=== PATIENT | male | born 1975 | race Caucasian/White ===

== ENCOUNTER 2023-01-01 01:00 | Day surgery (SDC) | payer OTHER, SELFPAY ==
[2022-12-20 12:55] VITALS: BMI 32.1
[2023-01-01 09:37] VITALS: BP 116/66; PULSE 72; RESP 18; TEMP 36; O2SAT 100
[2023-01-01] MEDS: LACTATED RINGERS 1,000 ML 150 ML IV CONT (09:40)
--- NOTE | 2023-01-01 10:28 | P.PNAN_ITS ---
Anes - Initial Pre Proc Eval Procedure: Operation Date: 01/01/23 11:00 Proposed Procedures p Screening Colonoscopy - Charlie Bonds MD Date/Time: 01/01/23 10:28 Surgeon: Charlie Bonds MD Pre Op Diagnosis: neoplasm screening Patient Data Age: 47 Gender: M Height: 1.7 m Weight: 93.9 kg Last Vital Signs Temp 96.8 F L 01/01/23 09:37 Pulse 72 01/01/23 09:37 Resp 18 01/01/23 09:37 BP 116/66 01/01/23 09:37 Pulse Ox 100 01/01/23 09:37 O2 Del Method Room Air 01/01/23 09:37 Allergies Allergy/AdvReac Type Severity Reaction Status Date / Time No Known Allergies Allergy Verified 01/01/23 09:36 Home Medications Medication Instructions Recorded Confirmed Type atorvastatin 20 mg tablet 20 mg PO QHS #90 tabs 12/05/22 01/01/23 Rx Patient hx anesthesia problems: none Family hx anesthesia problems: none Results Review: All pre-operative results and documents have been reviewed as part of the pre- operative evaluation. [facility] Family History Family History Father Diabetes mellitus Family history of malignant neoplasm of esophagus, Onset Age: 64 Mother Patient's mother is in good health Social History Social History Smoking packs per day: 0.5 Smoking cigarettes per day: 10.0 Years smoked: 5 Smoking pack-years: 2.50 Smoking status: Former smoker Tobacco type: cigarettes Alcohol intake: current Drinks per week: 5 Substance use type: does not use Living arrangements: with family Spiritual care concerns: No Anes - Eval Final PreProcedure Day of Procedure 01/01/23 10:28 Patient weight: obese Heart: regular rate and rhythm Lungs: clear to auscultation Airway: Mallampati scale class II Neurological: alert and oriented Last oral intake: >/= 8 hours ASA classification: II Emergent: no Anesthetic plan: proceed Anesthesia type and monitoring: general GIVS and standard monitoring Results Review: All pre-operative results and documents have been reviewed as part of the pre- operative evaluation. Informed Consent: The patient's anesthetic plan and its attendant risks and benefits were discussed with the patient/family/POA. Questions were solicited and answers provided to the satisfaction of the patient/family/POA.
--- NOTE | 2023-01-01 10:48 | P.HP_ITS ---
History of Present Illness History of Present Illness Consent: Risks, benefits, and alternatives have been discussed and questions answered. Patient agrees to proceed with procedure. Chief complaint: neoplasm screening Narrative: Joaquin Frank is a 47 year old male here for first screening colonoscopy Review of Systems Constitutional: Constitutional: Denies headache(s) and Denies weakness Eyes: Eyes: Denies blurry vision ENT: Reports Normal hearing present, Denies headache(s) and Denies neck pain Cardiovascular: Cardiovascular: Denies chest pain and Denies dyspnea Respiratory: Respiratory: Denies dyspnea Gastrointestinal: Gastrointestinal: Reports no additional gastrointestinal complaints Genitourinary: Genitourinary: Denies dysuria Musculoskeletal: Musculoskeletal: Denies neck pain Integumentary/Breasts: Skin/Breast: Denies dry skin Neurologic: Reports Normal hearing present, Denies headache(s) and Denies we akness Psychiatric: Psychiatric: Denies anxiety Endocrine: Endocrine: Denies change in body appearance Hematologic/Lymphatic: Hematologic/Lymphatic: Denies easy bleeding Allergic/Immunologic: Allergic/Immunologic: Denies urticaria PMFSH Family History Family History Father Diabetes mellitus Family history of malignant neoplasm of esophagus, Onset Age: 64 Mother Patient's mother is in good health Social History Social History Smoking packs per day: 0.5 Smoking cigarettes per day: 10.0 Years smoked: 5 Smoking pack-years: 2.50 Smoking status: Former smoker Tobacco type: cigarettes Alcohol intake: current Drinks per week: 5 Substance use type: does not use Living arrangements: with family Spiritual care concerns: No Meds Home Medications and Allergies Home Medications Medication Instructions Recorded Confirmed Type atorvastatin 20 mg tablet 20 mg PO QHS #90 tabs 12/05/22 01/01/23 Rx Allergies Allergy/AdvReac Type Severity Reaction Status Date / Time No Known Allergies Allergy Verified 01/01/23 09:36 Vital Signs Vital Signs - 24 hr 01/01/23 09:37 Temperature 96.8 F L Pulse Rate 72 Respiratory Rate 18 Blood Pressure 116/66 Pulse Oximetry 100 Oxygen Delivery Room Air Exam Const: General: comfortable and no acute distress HENMT: Face/Nose/Sinus: Normal nares present Eyes: General: appearance normal, both eyes and all related structures Neck: Neck: no JVD Resp: Auscultation: clear to auscultation bilaterally Cardio: Rate: regular rate Rhythm: regular rhythm GI: Inspection: non-distended GI Palp: Yes Soft to palpation Skin: General skin exam: normal color Neuro: General: gait normal Speech: normal speech Extrem: General: normal to inspection Psych: Mental Status: mental status grossly normal Assessment and Plan Assessment and plan (1) Screening for colon cancer: Code(s): Z12.11 - Encounter for screening for malignant neoplasm of colon Status: Acute Assessment
[2023-01-01 11:11] VITALS: BP 100/65; PULSE 70; RESP 20; O2SAT 99
[2023-01-01 11:21] VITALS: BP 111/76; PULSE 64; RESP 27; O2SAT 98
[2023-01-01 11:31] VITALS: BP 116/80; PULSE 60; RESP 16; O2SAT 99
== END 2023-01-01 11:38 | disposition home or self-care (01) ==
PROVIDERS: PCP Family Medicine; Visit Provider Internal Medicine Gastroenterology
PROC: 0DJD8ZZ Inspection of Lower Intestinal Tract, Via Natural or Artificial Opening Endoscopic (ICD-10-PCS; CPT 45378; principal; 2023-01-01 11:00)
DX: Z12.11 Encounter for screening for malignant neoplasm of colon (principal); K64.8 Other hemorrhoids
CPT/HCPCS: 45378; J2704; J7120

== ENCOUNTER → 2023-01-30 11:10 | Outpatient (CLI) | payer OTHER, SELFPAY ==
--- NOTE | ~2023-01-30 | XR_ITS ---
EXAMINATION: XR foot LT min 3V DATE: 01/30/2023 11:39 INDICATION: Unspecified dislocation of left toes. TECHNIQUE: 4 views of left foot were obtained. COMPARISON: None. FINDINGS: There is an oblique extra articular fracture of fifth proximal phalanx. The distal fracture fragment demonstrates impaction and 19 degrees lateral angulation. Joint spaces are normal. There is an enthesophyte at posterior aspect of calcaneal tuberosity. IMPRESSION: 1. Extra articular oblique fracture of fifth proximal phalanx. Reviewed, dictated and finalized at location L.
== END ==
PROVIDERS: PCP Family Medicine; Visit Provider Physician Assistant
DX: S92.512A Displaced fracture of proximal phalanx of left lesser toe(s), initial encounter for closed fracture (principal)
CPT/HCPCS: 73630